=== PATIENT | female | born 1965 | race Caucasian/White ===

== ENCOUNTER → 2017-10-20 | Outpatient (CLI) | payer OTHER ==
[~2017-10-20] MED LIST: GADOBUTROL 7.5 MMOL/7.5 ML PFS ONE
== END | disposition home or self-care (01) ==
LOC: CFH 10:40
PROVIDERS: ATTEND Naturopath
DX: R90.82 White matter disease, unspecified (principal); G44.52 New daily persistent headache (NDPH); R41.3 Other amnesia
CPT/HCPCS: 70553; A9585

== ENCOUNTER → 2018-05-04 | Outpatient (CLI) | payer OTHER | END | disposition home or self-care (01) | LOC: CARD 12:36 | PROVIDERS: ATTEND Registered Nurse | DX: R41.3 Other amnesia (principal) | CPT/HCPCS: 95819 ==